=== PATIENT | female | born 2000 | race African-American/Black ===

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

== ENCOUNTER 2021-06-12 10:33 | Emergency (ER) | payer MEDICAID, OTHER ==
[~2021-06-12] VITALS: Ht 165.1 cm; Wt 63.5 kg
[2021-06-12] MEDS ORDERED: ONDANSETRON HCL 4 MG/2 ML VIAL IV ONE (11:00)
[2021-06-12] MEDS ORDERED: MORPHINE SULFATE 4 MG/ML SYR/VIAL IV ONE (11:00)
[2021-06-12] MEDS ORDERED: SODIUM CHLORIDE 0.9% 1,000 ML IVB ONE (11:00)
[2021-06-12 11:44] LABS: Urine Amorphous Crystal FEW /hpf (None Seen); Urine Bacteria FEW /hpf (None Seen); Urine Blood 3+ /uL (Negative); Urine Mucus FEW (None Seen); Urine Specific Gravity 1.024 (1.001-1.035)
[2021-06-12 11:49] LABS: Alcohol, Urine < 3.0 mg/dL (0-10); Amphetamine Screen, Urine NEGATIVE (NEGATIVE); Barbiturate Scree,Urine NEGATIVE (NEGATIVE); Benzodiazephine Screen, Urine NEGATIVE (NEGATIVE); Cannabinoid Screen, Urine POSITIVE (NEGATIVE); Cocaine Screen, Urine NEGATIVE (NEGATIVE); Opiate Scree,Urine NEGATIVE (NEGATIVE); Phencyclidine Screen, Urine NEGATIVE (NEGATIVE)
[2021-06-12 11:50] LABS: Urine WBC 5 /hpf (0 - 5)
[2021-06-12 11:57] LABS: Basophils # (auto) 0 10 ^3/uL (0-0.2); Eosinophils # (auto) 0 10 ^3/uL (0-0.8); Eosinophils % (auto) 0.3 % (0.0-7.0); Hemoglobin 11.6 g/dL (12.2-16.2); Lymphocytes # (auto) 1.2 10 ^3/uL (0.4-5.4); Monocytes # (auto) 0.4 10 ^3/uL (0-1.3); Neutrophils # (auto) 4.4 10 ^3/uL (1.6-8.6)
[2021-06-12 12:01] LABS: Basophils % (auto) 0.5 % (0.0-2.0); Hematocrit 35.5 % (36.0-46.0); Lymphocytes % (auto) 19.7 % (10.0-50.0); Mean Corpuscular Hemoglobin 26.1 pg (28.0-32.0); Mean Corpuscular Hgb Conc. 32.7 g/dL (32.0-36.0); Mean Corpuscular Volume 79.7 fL (80.0-100.0); Monocytes % (auto) 6.4 % (0.0-12.0); Neutrophils % (auto) 73.1 % (37.0-80.0); Nucleated Red Blood Cells % 0.1 %; Red Blood Cells 4.45 10^6/uL (4.0-5.20); Red Cell Distribution Width 17.8 % (11.8-14.3); White Blood Cell 6.1 10^3/uL (4.4-10.8)
[2021-06-12 12:07] LABS: Potassium 3.8 mmol/L (3.5-5.1)
[2021-06-12 12:12] LABS: Albumin 3.7 g/dL (3.4-5.0); Calcium 8.9 mg/dL (8.5-10.1)
[2021-06-12 12:14] LABS: Bilirubin, Total 0.2 mg/dL (0.2-1.0); Total Protein 7.8 g/dL (6.4-8.2)
[2021-06-12 12:35] VITALS: BP 111/63
== END 2021-06-12 12:52 | disposition left against medical advice (07) ==
LOC: ER 10:33
DX: R10.84 Generalized abdominal pain (principal); F12.10 Cannabis abuse, uncomplicated; Z53.29 Procedure and treatment not carried out because of patient's decision for other reasons
CPT/HCPCS: 36415; 74176; 80053; 80307; 81001; 81025; 83690; 85025

== ENCOUNTER 2022-11-13 13:36 | Emergency (ER) | payer MEDICAID ==
[~2022-11-13] VITALS: Ht 167.6 cm; Wt 63.0 kg
[2022-11-13 13:45] VITALS: BP 109/73; PULSE 64; RESP 16; TEMP 97.9; O2SAT 100
[2022-11-13] MEDS ORDERED: DexAMETHasone SOD PHOS 10MG/1ML VIAL INJ IM ONE (15:00)
[2022-11-13] MEDS ORDERED: cefTRIAXone SOD 1,000 MG VL IM ONE (15:00)
[2022-11-13] MEDS ORDERED: LIDOCAINE VISCOUS 2% 15ML UD MT ONE (15:00)
[2022-11-13] MEDS ORDERED: CLIN300C70 PO ×3 (15:10→17:11)
[2022-11-13] MEDS ORDERED: PRED20TA2 PO ×3 (15:10→17:11)
[2022-11-13] MEDS ORDERED: LIDO2SOL18 MT ×3 (15:10→17:11)
== END 2022-11-13 17:50 | disposition home or self-care (01) ==
LOC: ER 13:36
DX: J03.90 Acute tonsillitis, unspecified (principal); Z79.2 Long term (current) use of antibiotics; Z79.899 Other long term (current) drug therapy
CPT/HCPCS: 96372; 99284; J0696; J1100

== ENCOUNTER 2024-10-03 11:33 | Emergency (ER) | payer MEDICAID ==
[~2024-10-03] VITALS: Ht 167.6 cm; Wt 59.5 kg
[~2024-10-03 11:33] MED LIST: CLIN1CAP70 PO; LIDO2SOL18 MT; PRED20TA2 PO
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
--- NOTE | 2024-10-03 13:17 | DVH ---
EXAM: XY R KNEE 4V XRAY HISTORY: 23-year-old female with right knee pain. COMPARISON: None TECHNIQUE: Four views of the right knee were performed. FINDINGS: No fracture or significant degenerative changes are identified about the right knee. No lateral lopez lar tilt or subluxation on the sunrise view. No evidence of significant joint effusion. IMPRESSION: No fracture or significant degenerative changes of the right knee.
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
[2024-10-03 14:21] VITALS: BP 117/78; PULSE 72; RESP 16; TEMP 97.9; O2SAT 99
[2024-10-03] MEDS ORDERED: ACET-6 PO (14:39)
[2024-10-03] MEDS ORDERED: IBUP1TAB5 PO (14:39)
== END 2024-10-03 15:35 | disposition home or self-care (01) ==
LOC: ER 11:33
DX: S52.125A Nondisplaced fracture of head of left radius, initial encounter for closed fracture (principal); S80.211A Abrasion, right knee, initial encounter; Y92.488 Other paved roadways as the place of occurrence of the external cause; W18.39XA Other fall on same level, initial encounter; Y93.I9 Activity, other involving external motion; Y99.8 Other external cause status; M25.512 Pain in left shoulder
CPT/HCPCS: 29105; 73080; 73564